=== PATIENT | female | born 1990 | race Caucasian/White ===

== ENCOUNTER 2017-11-25 11:35 | Emergency (ER) | payer OTHER ==
[~2017-11-25] VITALS: Ht 165.1 cm; Wt 70.3 kg
[2017-11-25 14:02] VITALS: BP 131/93
== END 2017-11-25 14:02 | disposition home or self-care (01) ==
LOC: ED 11:35
DX: J86.9 Pyothorax without fistula (principal); N39.0 Urinary tract infection, site not specified
CPT/HCPCS: J2001

== ENCOUNTER 2018-12-10 01:25 | Emergency (ER) | payer OTHER ==
[~2018-12-10] VITALS: Ht 165.1 cm; Wt 81.2 kg
[2018-12-10 01:36] VITALS: Ht 165.1 cm; Wt 81.2 kg
[2018-12-10 03:53] VITALS: BP 144/76
== END 2018-12-10 03:53 | disposition home or self-care (01) ==
LOC: ED 01:25
DX: H66.91 Otitis media, unspecified, right ear (principal); Z98.890 Other specified postprocedural states

== ENCOUNTER 2020-05-07 07:53 | Emergency (ER) | payer OTHER ==
[~2020-05-07] VITALS: Ht 165.1 cm; Wt 84.4 kg
[2020-05-07 08:01] VITALS: BP 143/95; Ht 165.1 cm; Wt 84.4 kg
== END 2020-05-07 08:28 | disposition home or self-care (01) ==
LOC: ED 07:53
DX: K62.89 Other specified diseases of anus and rectum (principal); Z98.890 Other specified postprocedural states